=== PATIENT | female | born 1955 | race African-American/Black ===

== ENCOUNTER 2021-05-17 22:11 | Emergency (ER) | payer OTHER ==
[~2021-05-17] VITALS: Ht 157.5 cm; Wt 68.0 kg
[2021-05-17 22:57] LABS: BASOPHILS % (AUTO) 0.6 % (0.0-2.0); EOSINOPHILS % (AUTO) 0.8 % (1.0-6.0); HEMOGLOBIN 12.3 g/dL (12.0-16.0); LYMPHOCYTES # (AUTO) 1.5 K/uL (1.0-4.8); LYMPHOCYTES % (AUTO) 30.1 % (22.0-44.0); MEAN CORPUSCULAR HEMOGLOBIN 28.5 pg (26.0-34.0); MEAN CORPUSCULAR HGB CONC 32.4 G/dL (31.0-37.0); MEAN CORPUSCULAR VOLUME 88 fL (80-100); MONOCYTES # (AUTO) 0.4 K/uL (0.1-1.0); MONOCYTES % (AUTO) 7.3 % (2.0-9.0); NEUTROPHILS % (AUTO) 61.2 % (40.0-70.0); PLATELET COUNT (AUTO) 225 K/uL (150-450); RED BLOOD CELL COUNT(AUTO) 4.32 MIL/uL (4.00-5.20); RED CELL DISTRIBUTION WIDTH 13.9 % (11.5-14.5)
[2021-05-17 23:13] LABS: ANION GAP 6 mmol/L (8-16); CARBON DIOXIDE 30 mmol/L (22-29); CHLORIDE 104 mmol/L (98-107); CREATININE 0.88 mg/dL (0.60-1.30); GLOMERULAR FILTR. RATE CALC > 60 mL/min (>60); GLUCOSE,RANDOM 84 mg/dL (70-110); POTASSIUM 4.2 mmol/L (3.5-5.1); SODIUM SERUM 140 mmol/L (136-145); UREA NITROGEN, BLOOD 16 mg/dL (7-18)
[2021-05-17 23:18] LABS: ALANINE AMINOTRANSFERASE 51 U/L (12-78); ALBUMIN 3.8 g/dL (3.4-5.0); ALKALINE PHOSPHATASE 69 U/L (46-116); ASPARTATE AMINOTRANSFERASE 67 U/L (15-37); BILIRUBIN,TOTAL 0.3 mg/dL (0.1-1.0); TOTAL PROTEIN, SERUM 8.1 g/dL (6.4-8.2)
[2021-05-17 23:24] LABS: AMPHET/METH SCREEN,URINE NEGATIVE (NEGATIVE); BARBITURATE SCREEN, URINE NEGATIVE (NEGATIVE); BENZODIAZEPINES SCREEN,URINE NEGATIVE (NEGATIVE); CANNABINOID SCREEN,URINE NEGATIVE (NEGATIVE); COCAINE SCREEN,URINE NEGATIVE (NEGATIVE); METHADONE SCREEN, URINE NEGATIVE (NEGATIVE); OPIATE SCREEN,URINE NEGATIVE (NEGATIVE); PHENCYCLIDINE SCREEN,URINE NEGATIVE (NEGATIVE)
[2021-05-18 00:33] VITALS: BP 125/83
== END 2021-05-18 00:36 | disposition home or self-care (01) ==
LOC: EMS 22:14
DX: F43.20 Adjustment disorder, unspecified (principal); Z79.899 Other long term (current) drug therapy
CPT/HCPCS: 36415; 80053; 80307; 85025; 99283; G0480

== ENCOUNTER 2021-05-18 21:40 | Inpatient (IN) | payer MEDICAID, OTHER ==
[~2021-05-18] VITALS: Ht 160 cm; Wt 65.9 kg
[2021-05-18 23:03] LABS: BASOPHILS % (AUTO) 0.4 % (0.0-2.0); EOSINOPHILS % (AUTO) 0.7 % (1.0-6.0); HEMATOCRIT 39.1 % (36-46); HEMOGLOBIN 12.8 g/dL (12.0-16.0); LYMPHOCYTES # (AUTO) 1.8 K/uL (1.0-4.8); LYMPHOCYTES % (AUTO) 38.8 % (22.0-44.0); MEAN CORPUSCULAR HEMOGLOBIN 28.6 pg (26.0-34.0); MEAN CORPUSCULAR HGB CONC 32.6 G/dL (31.0-37.0); MEAN CORPUSCULAR VOLUME 88 fL (80-100); MONOCYTES # (AUTO) 0.4 K/uL (0.1-1.0); MONOCYTES % (AUTO) 8.3 % (2.0-9.0); NEUTROPHILS # (AUTO) 2.4 K/uL (1.8-7.7); NEUTROPHILS % (AUTO) 51.8 % (40.0-70.0); PLATELET COUNT (AUTO) 249 K/uL (150-450); RED BLOOD CELL COUNT(AUTO) 4.46 MIL/uL (4.00-5.20); RED CELL DISTRIBUTION WIDTH 14.3 % (11.5-14.5)
[2021-05-18 23:13] LABS: APPEARANCE,URINE CLEAR (CLEAR); BILIRUBIN,URINE NEGATIVE (NEGATIVE); GLUCOSE, URINE (UA) NEGATIVE (NEGATIVE); KETONES,URINE NEGATIVE (NEGATIVE); LEUKOCYTE ESTERASE ,URINE NEGATIVE Leu/uL (NEGATIVE); NITRATE,URINE NEGATIVE (NEGATIVE); OCCULT BLOOD,URINE NEGATIVE (NEGATIVE); PH,URINE 5.5 (5.0-8.0); PROTEIN,URINE NEGATIVE (NEGATIVE); SPECIFIC GRAVITIY, URINE 1.005 (1.003-1.030); UROBILINOGEN,URINE <=1.0 mg/dL (<=1.0)
[2021-05-18 23:14] LABS: ANION GAP 9 mmol/L (8-16); CALCIUM, TOTAL 9.2 mg/dL (8.8-10.5); CARBON DIOXIDE 29 mmol/L (22-29); CHLORIDE 102 mmol/L (98-107); CREATININE 0.87 mg/dL (0.60-1.30); GLOMERULAR FILTR. RATE CALC > 60 mL/min (>60); GLUCOSE,RANDOM 89 mg/dL (70-110); POTASSIUM 3.6 mmol/L (3.5-5.1); SODIUM SERUM 140 mmol/L (136-145); UREA NITROGEN, BLOOD 12 mg/dL (7-18)
[2021-05-18 23:25] LABS: ALANINE AMINOTRANSFERASE 53 U/L (12-78); ALBUMIN 3.9 g/dL (3.4-5.0); ALKALINE PHOSPHATASE 68 U/L (46-116); ASPARTATE AMINOTRANSFERASE 65 U/L (15-37); BILIRUBIN,TOTAL 0.4 mg/dL (0.1-1.0); THYROID STIMULATING HORMONE 1.52 uIU/mL (0.36-3.74); TOTAL PROTEIN, SERUM 8.6 g/dL (6.4-8.2)
[2021-05-18 23:32] LABS: RBC,URINE 0-2 /HPF (0-2); WBC,URINE 0-2 /HPF (0-5)
[2021-05-18 23:33] LABS: BACTERIA,URINE None Seen /HPF (None Seen)
[2021-05-19] MEDS ORDERED: HALOPERIDOL LACTATE 5 MG/ML VIAL IM ONE ×3 (02:15→08:30)
[2021-05-19] MEDS ORDERED: DiphenhydrAMINE HCL 50 MG/ML VIAL IM ONE ×3 (02:15→08:30)
[2021-05-19 03:24] LABS: COVID AG,FIA SOURCE NASAL SWAB
[2021-05-19] MEDS ORDERED: LORazepam 2 MG/ML VIAL IM ONE ×2 (04:15→08:30)
[2021-05-19] MEDS ORDERED: NICOTINE 14 MG/24 HOUR PATCH TD PRN (06:15)
[2021-05-19] MEDS ORDERED: MAG HYDROX/AL HYDROX/SIMETH ES 30 ML SUSPENSION UDCUP PO PRN (06:15)
[2021-05-19] MEDS ORDERED: GuaiFENesin/D-METHORPHAN [SUGAR-FREE] 200-20MG/10 ML SYRUP UDCUP PO PRN (06:15)
[2021-05-19] MEDS ORDERED: LOPERAMIDE HCL 2 MG CAPSULE PO PRN (06:15)
[2021-05-19] MEDS ORDERED: DOCUSATE SODIUM 100 MG CAPSULE PO PRN (06:15)
[2021-05-19] MEDS ORDERED: CloNIDine HCL 0.1 MG TABLET PO PRN (06:15)
[2021-05-19] MEDS ORDERED: ONDANSETRON HCL 4 MG TABLET PO PRN (06:15)
[2021-05-19] MEDS ORDERED: MAGNESIUM HYDROXIDE SUSPENSION 30 ML UDCUP PO PRN (06:15)
[2021-05-19] MEDS ORDERED: PETROLATUM,WHITE 28 GM JELLY TP PRN (06:15)
[2021-05-19] MEDS ORDERED: ACETAMINOPHEN 325 MG TABLET PO PRN (06:15)
[2021-05-19] MEDS ORDERED: ALBUTEROL SULFATE HFA 90 MCG/PUFF 8 GM INHALER IH PRN (06:15)
[2021-05-19 16:19] VITALS: BP 128/83
[2021-05-19] MEDS: OLANZapine 5 MG TABLET PO SCH (17:41)
[2021-05-20 07:13] LABS: MAGNESIUM 2.3 mg/dL (1.80-2.40); PHOSPHORUS 4.3 mg/dL (2.5-4.9)
[2021-05-20] MEDS: OLANZapine 5 MG TABLET PO SCH ×2 (09:03→16:30)
[2021-05-20] MEDS: LORazepam 2 MG TABLET PO PRN ×2 (09:03→16:10)
[2021-05-20 12:40] VITALS: BP 144/88
[2021-05-20] MEDS: HALOPERIDOL 5 MG TABLET PO PRN (16:10)
[2021-05-20 16:11] VITALS: BP 121/79
[2021-05-21 01:43] VITALS: BP 114/77
[2021-05-21] MEDS: OLANZapine 5 MG TABLET PO SCH ×2 (08:52→17:00)
[2021-05-21 10:30] VITALS: BP 153/78
[2021-05-21 16:27] VITALS: BP 123/86
[2021-05-21] MEDS: LORazepam 2 MG TABLET PO PRN (16:30)
[2021-05-21] MEDS: HALOPERIDOL 5 MG TABLET PO PRN (16:30)
[2021-05-22] MEDS: OLANZapine 5 MG TABLET PO SCH ×2 (08:50→17:08)
[2021-05-22 10:38] VITALS: BP 140/86
[2021-05-22 16:00] VITALS: BP 153/98
[2021-05-22 21:57] VITALS: BP 154/96
[2021-05-22 22:00] VITALS: BP 150/75
[2021-05-22] MEDS: IBUPROFEN 400 MG TABLET PO PRN (22:00)
[2021-05-23 00:35] VITALS: BP 150/89
[2021-05-23] MEDS: LORazepam 2 MG TABLET PO PRN ×2 (00:45→22:43)
[2021-05-23] MEDS: HALOPERIDOL 5 MG TABLET PO PRN ×2 (00:45→20:10)
[2021-05-23] MEDS: OLANZapine 5 MG TABLET PO SCH ×2 (09:07→16:08)
[2021-05-23 09:34] VITALS: BP 138/83
[2021-05-23 16:20] VITALS: BP 155/76
[2021-05-24] MEDS: OLANZapine 5 MG TABLET PO SCH ×2 (08:30→16:14)
[2021-05-24] MEDS: LORazepam 2 MG TABLET PO PRN (08:31)
[2021-05-24 09:04] VITALS: BP 131/73
[2021-05-24 16:36] VITALS: BP 135/76
[2021-05-24 21:54] VITALS: BP 128/72
[2021-05-24] MEDS: IBUPROFEN 400 MG TABLET PO PRN (21:54)
[2021-05-25] MEDS: ZOLPIDEM TARTRATE 10 MG TABLET PO PRN (00:22)
[2021-05-25 08:00] VITALS: BP 126/78
[2021-05-25] MEDS: OLANZapine 5 MG TABLET PO SCH ×2 (08:37→17:16)
[2021-05-25 14:05] LABS: COVID AG,FIA SOURCE NASOPHARYNGEAL
[2021-05-25] MEDS: HALOPERIDOL 5 MG TABLET PO PRN (16:00)
[2021-05-25] MEDS: LORazepam 2 MG TABLET PO PRN (16:00)
[2021-05-25 16:35] VITALS: BP 155/92
[2021-05-25 18:51] VITALS: BP 136/94
[2021-05-25] MEDS: IBUPROFEN 400 MG TABLET PO PRN (18:51)
[2021-05-26 04:09] VITALS: BP 128/77
[2021-05-26] MEDS: OLANZapine 5 MG TABLET PO SCH ×2 (08:17→16:55)
[2021-05-26 09:35] VITALS: BP 146/92
[2021-05-26] MEDS ORDERED: HYDROCORTISONE 2.5% 30 GM CREAM TP PRN (10:15)
[2021-05-26] MEDS ORDERED: HYDROCORTISONE 25 MG RECTAL SUPPOSITORY PR PRN (10:15)
[2021-05-26 16:39] VITALS: BP 121/71
[2021-05-26] MEDS: LORazepam 2 MG TABLET PO PRN (16:55)
[2021-05-26] MEDS: HALOPERIDOL 5 MG TABLET PO PRN (16:55)
[2021-05-27 08:08] VITALS: BP 123/76
[2021-05-27] MEDS: OLANZapine 5 MG TABLET PO SCH ×2 (08:41→17:49)
[2021-05-27 16:11] VITALS: BP 133/78
[2021-05-27] MEDS: LORazepam 2 MG TABLET PO PRN (17:49)
[2021-05-27] MEDS: HALOPERIDOL 5 MG TABLET PO PRN (17:49)
[2021-05-28 08:12] VITALS: BP 147/75
[2021-05-28] MEDS: OLANZapine 5 MG TABLET PO SCH ×2 (08:18→16:16)
[2021-05-28 16:10] VITALS: BP 132/82
[2021-05-28] MEDS: ZOLPIDEM TARTRATE 10 MG TABLET PO PRN (20:48)
[2021-05-29] MEDS: OLANZapine 5 MG TABLET PO SCH ×2 (08:42→16:28)
[2021-05-29 09:32] VITALS: BP 152/88
[2021-05-29] MEDS: IBUPROFEN 400 MG TABLET PO PRN (09:35)
[2021-05-29] MEDS: LORazepam 2 MG TABLET PO PRN (12:35)
[2021-05-29 16:41] VITALS: BP 141/82
[2021-05-30 01:49] VITALS: BP 129/77
[2021-05-30 03:30] VITALS: BP 128/79
[2021-05-30] MEDS: IBUPROFEN 400 MG TABLET PO PRN ×3 (03:40→21:15)
[2021-05-30 08:30] VITALS: BP 140/70
[2021-05-30] MEDS: OLANZapine 5 MG TABLET PO SCH ×2 (08:51→16:39)
[2021-05-30 09:40] VITALS: BP 145/78
[2021-05-30 16:00] VITALS: BP 123/69
[2021-05-30 21:14] VITALS: BP 128/72
[2021-05-31 09:00] VITALS: BP 155/98
[2021-05-31] MEDS: OLANZapine 5 MG TABLET PO SCH ×2 (09:12→16:26)
[2021-05-31 10:59] VITALS: BP 149/78
[2021-05-31] MEDS: IBUPROFEN 400 MG TABLET PO PRN (10:59)
[2021-05-31] MEDS ORDERED: OLAN5TAB52 PO (12:43)
[2021-05-31 17:34] VITALS: BP 146/90
== END 2021-05-31 18:15 | disposition home or self-care (01) | DRG 750 ==
LOC: EMS 21:40 → 3EI 05-19 03:00
PROVIDERS: ADMIT Psychiatry & Neurology Child & Adolescent Psychiatry; ATTEND Psychiatry & Neurology Child & Adolescent Psychiatry
DX: F20.0 Paranoid schizophrenia (principal); R10.13 Epigastric pain; Z20.822 Contact with and (suspected) exposure to COVID-19; R74.01 Elevation of levels of liver transaminase levels
CPT/HCPCS: 70450; 80053; 81001; 83735; 84100; 84443; 85025; 93005; 99285; J1200; J1630; J2060; Q0162

== ENCOUNTER 2022-04-09 10:27 | Emergency (ER) | payer MEDICAID, OTHER ==
[~2022-04-09] VITALS: Ht 160 cm; Wt 65.9 kg
[~2022-04-09 10:27] MED LIST: OLAN5TAB52 PO
[2022-04-09 10:50] VITALS: BP 128/73
[2022-04-09] MEDS ORDERED: SODIUM CHLORIDE 0.9% 1,000 ML IV ONE (11:15)
[2022-04-09 11:25] LABS: BASOPHILS % (AUTO) 0.4 % (0.0-2.0); EOSINOPHILS % (AUTO) 0.3 % (1.0-6.0); HEMATOCRIT 37.5 % (36-46); HEMOGLOBIN 12.3 g/dL (12.0-16.0); LYMPHOCYTES % (AUTO) 36.3 % (22.0-44.0); MEAN CORPUSCULAR HEMOGLOBIN 29.1 pg (26.0-34.0); MEAN CORPUSCULAR HGB CONC 32.9 G/dL (31.0-37.0); MEAN CORPUSCULAR VOLUME 88 fL (80-100); MONOCYTES # (AUTO) 0.2 K/uL (0.1-1.0); NEUTROPHILS # (AUTO) 1.6 K/uL (1.8-7.7); PLATELET COUNT (AUTO) 205 K/uL (150-450); RED BLOOD CELL COUNT(AUTO) 4.24 MIL/uL (4.00-5.20); RED CELL DISTRIBUTION WIDTH 14.1 % (11.5-14.5)
[2022-04-09 11:32] LABS: ANION GAP 4 mmol/L (8-16); CALCIUM, TOTAL 8.8 mg/dL (8.8-10.5); CARBON DIOXIDE 30 mmol/L (22-29); CHLORIDE 106 mmol/L (98-107); CREATININE 0.92 mg/dL (0.60-1.30); GLUCOSE,RANDOM 97 mg/dL (70-110); POTASSIUM 3.8 mmol/L (3.5-5.1); SODIUM SERUM 140 mmol/L (136-145); UREA NITROGEN, BLOOD 12 mg/dL (7-18)
[2022-04-09 11:33] LABS: GLOMERULAR FILTR. RATE CALC > 60 mL/min (>60)
[2022-04-09 11:38] LABS: ALANINE AMINOTRANSFERASE 19 U/L (12-78); ALBUMIN 3.8 g/dL (3.4-5.0); ALKALINE PHOSPHATASE 62 U/L (46-116); ASPARTATE AMINOTRANSFERASE 30 U/L (15-37); BILIRUBIN,TOTAL 0.2 mg/dL (0.1-1.0); TOTAL PROTEIN, SERUM 7.9 g/dL (6.4-8.2)
[2022-04-09] MEDS ORDERED: LORazepam 1 MG TABLET PO ONE (12:00)
[2022-04-09] MEDS ORDERED: LORazepam 2 MG/ML VIAL IM ONE (12:00)
[2022-04-09] MEDS ORDERED: TRAZ-252 PO (12:14)
== END 2022-04-09 12:33 | disposition home or self-care (01) ==
LOC: EMS 10:48
DX: F41.9 Anxiety disorder, unspecified (principal); G47.00 Insomnia, unspecified; Z98.890 Other specified postprocedural states
CPT/HCPCS: 99284; 96360; 80053; 85025; 36415; 93005; G0480; J7030; J2060

== ENCOUNTER 2022-04-18 11:41 | Emergency (ER) | payer OTHER ==
[~2022-04-18] VITALS: Ht 162.6 cm; Wt 61.4 kg
[~2022-04-18 11:41] MED LIST changes: +TRAZ-252 PO
[2022-04-18] MEDS ORDERED: ASEN5TAB11 SL (12:11)
[2022-04-18 13:01] LABS: BASOPHILS % (AUTO) 0.7 % (0.0-2.0); EOSINOPHILS % (AUTO) 0.2 % (1.0-6.0); HEMATOCRIT 40.4 % (36-46); HEMOGLOBIN 13.1 g/dL (12.0-16.0); LYMPHOCYTES # (AUTO) 1.3 K/uL (1.0-4.8); LYMPHOCYTES % (AUTO) 33.4 % (22.0-44.0); MEAN CORPUSCULAR HEMOGLOBIN 28.6 pg (26.0-34.0); MEAN CORPUSCULAR HGB CONC 32.5 G/dL (31.0-37.0); MEAN CORPUSCULAR VOLUME 88 fL (80-100); MONOCYTES # (AUTO) 0.3 K/uL (0.1-1.0); MONOCYTES % (AUTO) 7.9 % (2.0-9.0); NEUTROPHILS # (AUTO) 2.2 K/uL (1.8-7.7); NEUTROPHILS % (AUTO) 57.8 % (40.0-70.0); PLATELET COUNT (AUTO) 227 K/uL (150-450); RED CELL DISTRIBUTION WIDTH 14.5 % (11.5-14.5)
[2022-04-18 13:10] LABS: ANION GAP 7 mmol/L (8-16); CALCIUM, TOTAL 9.3 mg/dL (8.8-10.5); CARBON DIOXIDE 31 mmol/L (22-29); CHLORIDE 104 mmol/L (98-107); CREATININE 0.87 mg/dL (0.60-1.30); GLUCOSE,RANDOM 111 mg/dL (70-110); POTASSIUM 3.9 mmol/L (3.5-5.1); SODIUM SERUM 142 mmol/L (136-145); UREA NITROGEN, BLOOD 11 mg/dL (7-18)
[2022-04-18 13:11] LABS: GLOMERULAR FILTR. RATE CALC > 60 mL/min (>60)
[2022-04-18 13:15] LABS: ALANINE AMINOTRANSFERASE 23 U/L (12-78); ALKALINE PHOSPHATASE 68 U/L (46-116); ASPARTATE AMINOTRANSFERASE 26 U/L (15-37); BILIRUBIN,TOTAL 0.3 mg/dL (0.1-1.0); TOTAL PROTEIN, SERUM 8.5 g/dL (6.4-8.2)
[2022-04-18] MEDS ORDERED: LORazepam 1 MG TABLET PO ONE (14:30)
[2022-04-18] MEDS ORDERED: QUEtiapine FUMARATE 100 MG TABLET PO ONE (14:30)
[2022-04-18 14:42] LABS: AMPHET/METH SCREEN,URINE NEGATIVE (NEGATIVE); BARBITURATE SCREEN, URINE NEGATIVE (NEGATIVE); BENZODIAZEPINES SCREEN,URINE NEGATIVE (NEGATIVE); CANNABINOID SCREEN,URINE NEGATIVE (NEGATIVE); COCAINE SCREEN,URINE NEGATIVE (NEGATIVE); METHADONE SCREEN, URINE NEGATIVE (NEGATIVE); OPIATE SCREEN,URINE NEGATIVE (NEGATIVE)
[2022-04-18 14:43] LABS: PHENCYCLIDINE SCREEN,URINE NEGATIVE (NEGATIVE)
[2022-04-18] MEDS ORDERED: QUET200T PO (15:09)
[2022-04-18 15:42] VITALS: BP 147/83
== END 2022-04-18 15:51 | disposition home or self-care (01) ==
LOC: EMS 11:41
DX: F20.9 Schizophrenia, unspecified (principal); G47.00 Insomnia, unspecified
CPT/HCPCS: 99283; 80053; 85025; 36415; 80307 ×2; G0480

== ENCOUNTER 2022-04-30 10:22 | Emergency (ER) | payer OTHER ==
[~2022-04-30] VITALS: Ht 167.6 cm; Wt 65.9 kg
[~2022-04-30 10:22] MED LIST changes: +ASEN5TAB11 SL; -OLAN5TAB52 PO; +QUET200T PO; -TRAZ-252 PO
[2022-04-30 10:25] VITALS: BP 123/71
[2022-04-30 11:08] LABS: BASOPHILS % (AUTO) 0.4 % (0.0-2.0); EOSINOPHILS % (AUTO) 0.2 % (1.0-6.0); HEMATOCRIT 40.2 % (36-46); HEMOGLOBIN 12.7 g/dL (12.0-16.0); LYMPHOCYTES # (AUTO) 1.1 K/uL (1.0-4.8); LYMPHOCYTES % (AUTO) 37.3 % (22.0-44.0); MEAN CORPUSCULAR HGB CONC 31.7 G/dL (31.0-37.0); MEAN CORPUSCULAR VOLUME 88 fL (80-100); MONOCYTES # (AUTO) 0.2 K/uL (0.1-1.0); MONOCYTES % (AUTO) 6.3 % (2.0-9.0); NEUTROPHILS # (AUTO) 1.7 K/uL (1.8-7.7); NEUTROPHILS % (AUTO) 55.8 % (40.0-70.0); PLATELET COUNT (AUTO) 211 K/uL (150-450); RED BLOOD CELL COUNT(AUTO) 4.55 MIL/uL (4.00-5.20); RED CELL DISTRIBUTION WIDTH 14.3 % (11.5-14.5)
[2022-04-30 11:23] LABS: ANION GAP 6 mmol/L (8-16); CALCIUM, TOTAL 8.6 mg/dL (8.8-10.5); CARBON DIOXIDE 31 mmol/L (22-29); CHLORIDE 103 mmol/L (98-107); CREATININE 0.92 mg/dL (0.60-1.30); GLOMERULAR FILTR. RATE CALC > 60 mL/min (>60); GLUCOSE,RANDOM 89 mg/dL (70-110); POTASSIUM 3.6 mmol/L (3.5-5.1); SODIUM SERUM 140 mmol/L (136-145); UREA NITROGEN, BLOOD 12 mg/dL (7-18)
[2022-04-30 11:26] LABS: COVID AG,FIA SOURCE NASAL SWAB
[2022-04-30 11:27] LABS: ALANINE AMINOTRANSFERASE 20 U/L (12-78); ALBUMIN 3.8 g/dL (3.4-5.0); ALKALINE PHOSPHATASE 56 U/L (46-116); ASPARTATE AMINOTRANSFERASE 31 U/L (15-37); BILIRUBIN,TOTAL 0.4 mg/dL (0.1-1.0); TOTAL PROTEIN, SERUM 8.1 g/dL (6.4-8.2)
[2022-04-30] MEDS ORDERED: QUET200T PO (11:55)
[2022-04-30] MEDS ORDERED: QUEtiapine FUMARATE 100 MG TABLET PO ONE (12:00)
== END 2022-04-30 13:34 | disposition home or self-care (01) ==
LOC: EMS 10:24
DX: F20.9 Schizophrenia, unspecified (principal); G47.00 Insomnia, unspecified; Z76.0 Encounter for issue of repeat prescription; Z91.14 Patient's other noncompliance with medication regimen; Z20.822 Contact with and (suspected) exposure to COVID-19
CPT/HCPCS: 99284; 87426; 80053; 85025; 36415; G0480